=== PATIENT | female | born 1985 | race Caucasian/White ===

== ENCOUNTER 2023-11-06 06:52 | Emergency (ER) | payer BC, MEDICAID ==
[2023-11-06 07:59] LABS: BASOPHILS ABSOLUTE AUTO 0.1 K/mm3 (0.0-0.2); BASOPHILS PERCENT AUTO 0.7 % (0.0-1.0); EOSINOPHILS ABSOLUTE AUTO 0.2 K/mm3 (0.0-0.4); EOSINOPHILS PERCENT AUTO 1.3 % (0.0-6.0); HEMATOCRIT 42.5 % (37.0-47.0); HEMOGLOBIN 14.5 gm/dl (12.0-16.0); IMMATURE GRAN ABSOLUTE AUTO 0.13 K/mm3 (0.00-0.05); LYMPHOCYTES ABSOLUTE AUTO 1.9 K/mm3 (1.0-4.8); MEAN CORPUSCULAR HEMOGLOBIN 31.8 pg (28.0-32.0); MEAN CORPUSCULAR HGB CONC 34.1 g/dl (32.0-36.0); MEAN CORPUSCULAR VOLUME 93.2 fl (83.0-99.0); MEAN PLATELET VOLUME 8.7 fl (9.4-12.3); MONOCYTES ABSOLUTE AUTO 1.5 K/mm3 (0.0-0.8); MONOCYTES PERCENT AUTO 10.9 % (0.0-8.0); NEUTROPHILS ABSOLUTE AUTO 9.7 K/mm3 (1.8-7.7); NEUTROPHILS PERCENT AUTO 72.1 % (41.0-71.0); PLATELET COUNT,PLT 349 K/mm3 (150-400); RED BLOOD CELL COUNT 4.56 M/mm3 (4.10-5.30); WHITE BLOOD CELL COUNT,WBC 13.47 K/mm3 (3.9-11.3)
[2023-11-06 08:53] LABS: ALBUMIN 3.7 g/dl (3.4-5.0); ANION GAP 14.7 (5-15); BILIRUBIN TOTAL 0.4 mg/dL (0.2-1.0); CREATININE 0.8 mg/dL (0.55-1.02); EST CRCL DRUG DOSING (CG) 80.72 mL/min; POTASSIUM,K 3.7 mEq/L (3.5-5.1); PROTEIN TOTAL,TP 7.3 g/dl (6.4-8.2)
[2023-11-06 09:25] LABS: APPEARANCE,URINE CLEAR (Clear); BILIRUBIN,URINE NEGATIVE (Negative); COLOR,URINE YELLOW (Yellow); GLUCOSE,URINE NEGATIVE (Negative); KETONES,URINE NEGATIVE (Negative); LEUKOCYTE ESTERASE,URINE NEGATIVE (Negative); NITRITE,URINE NEGATIVE (Negative); OCCULT BLOOD,URINE NEGATIVE (Negative); PH,URINE 6.5 (5.0-8.0); PROTEIN,URINE NEGATIVE (Negative); UROBILINOGEN,URINE 0.2 (0.2-1.0)
[2023-11-06 10:11] LABS: BACTERIA,URINE FEW /hpf (FEW); EPITHELIAL CELLS,URINE 0-5 /hpf (0-5); MUCUS,URINE FEW /hpf (FEW); RBC,URINE 0-5 /hpf (0-5); WBC,URINE 0-5 /hpf (0-5)
== END 2023-11-06 11:25 | disposition home or self-care (01) ==
LOC: JD.ED 06:52
DX: O99.891 Other specified diseases and conditions complicating pregnancy (principal); R10.32 Left lower quadrant pain; Z88.0 Allergy status to penicillin; Z79.899 Other long term (current) drug therapy; Z3A.01 Less than 8 weeks gestation of pregnancy
CPT/HCPCS: 36415; 76817; 76817-26; 80053; 81001; 83735; 84702; 85025; 99284

== ENCOUNTER 2024-02-11 08:00 | Emergency (ER) | payer BC ==
[2024-02-11 08:44] LABS: BASOPHILS PERCENT AUTO 0.6 % (0.0-1.0); EOSINOPHILS PERCENT AUTO 0.3 % (0.0-6.0); HEMATOCRIT 32.5 % (37.0-47.0); IMMATURE GRAN ABSOLUTE AUTO 0.08 K/mm3 (0.00-0.05); IMMATURE GRAN PERCENT AUTO 1.1 % (0.0-0.4); LYMPHOCYTES ABSOLUTE AUTO 0.4 K/mm3 (1.0-4.8); MEAN CORPUSCULAR HEMOGLOBIN 30.6 pg (28.0-32.0); MEAN CORPUSCULAR HGB CONC 33.8 g/dl (32.0-36.0); MEAN CORPUSCULAR VOLUME 90.5 fl (83.0-99.0); MEAN PLATELET VOLUME 8.9 fl (9.4-12.3); MONOCYTES ABSOLUTE AUTO 1.1 K/mm3 (0.0-0.8); MONOCYTES PERCENT AUTO 14.9 % (0.0-8.0); NEUTROPHILS ABSOLUTE AUTO 5.6 K/mm3 (1.8-7.7); NEUTROPHILS PERCENT AUTO 78.1 % (41.0-71.0); RED BLOOD CELL COUNT 3.59 M/mm3 (4.10-5.30); WHITE BLOOD CELL COUNT,WBC 7.13 K/mm3 (3.9-11.3)
[2024-02-11 08:45] LABS: PLATELET COUNT,PLT 214 K/mm3 (150-400)
[2024-02-11 09:06] LABS: A/G RATIO 0.9 (1-2); ANION GAP 14.8 (5-15); BILIRUBIN TOTAL 0.2 mg/dL (0.2-1.0); BUN/CREATININE RATIO 6.7 (14-18); CALCIUM 9.4 mg/dL (8.5-10.1); CREATININE 0.6 mg/dL (0.55-1.02); EST CRCL DRUG DOSING (CG) 107.63 mL/min; POTASSIUM,K 3.8 mEq/L (3.5-5.1); PROTEIN TOTAL,TP 6.5 g/dl (6.4-8.2)
[2024-02-11 09:17] LABS: CORONAVIRUS COVID-19 NAA POSITIVE (NEGATIVE); INFLUENZA A NAA NEGATIVE (NEGATIVE); RESPIRATORY SYNCYTIAL VIR NAA NEGATIVE (NEGATIVE)
[2024-02-11 09:17] LABS: APPEARANCE,URINE CLEAR (Clear); BILIRUBIN,URINE NEGATIVE (Negative); COLOR,URINE LIGHT YELLOW (Yellow); GLUCOSE,URINE NEGATIVE (Negative); KETONES,URINE NEGATIVE (Negative); LEUKOCYTE ESTERASE,URINE NEGATIVE (Negative); NITRITE,URINE NEGATIVE (Negative); OCCULT BLOOD,URINE NEGATIVE (Negative); PH,URINE 6.5 (5.0-8.0); PROTEIN,URINE NEGATIVE (Negative); UROBILINOGEN,URINE 0.2 (0.2-1.0)
== END 2024-02-11 11:20 | disposition home or self-care (01) ==
LOC: JD.ED 08:00
DX: O98.512 Other viral diseases complicating pregnancy, second trimester (principal); U07.1 COVID-19; O99.891 Other specified diseases and conditions complicating pregnancy; R10.30 Lower abdominal pain, unspecified; Z88.0 Allergy status to penicillin; Z79.899 Other long term (current) drug therapy; Z3A.19 19 weeks gestation of pregnancy
CPT/HCPCS: 0241U; 36415; 76815; 80053; 81003; 83690; 85025; 99284

== ENCOUNTER 2024-06-28 05:18 | Inpatient (IN) | payer BC, MEDICAID ==
[2024-06-28] MEDS: Sodium Chloride 0.9% 10 ML Syringe FLUSH SCH ×2 (01:01→18:44)
[~2024-06-28 05:18] MED LIST: Lactated Ringers 1,000 ML IV SCH; Sodium Chloride 0.9% 10 ML Syringe FLUSH PRN
[2024-06-28] MEDS ORDERED: Lactated Ringers 1,000 ML IV SCH ×3 (06:00→07:15)
[2024-06-28 06:07] LABS: BASOPHILS ABSOLUTE AUTO 0.1 K/mm3 (0.0-0.2); BASOPHILS PERCENT AUTO 0.6 % (0.0-1.0); EOSINOPHILS ABSOLUTE AUTO 0.2 K/mm3 (0.0-0.4); EOSINOPHILS PERCENT AUTO 1.4 % (0.0-6.0); HEMATOCRIT 36.1 % (37.0-47.0); HEMOGLOBIN 12.1 gm/dl (12.0-16.0); IMMATURE GRAN ABSOLUTE AUTO 0.15 K/mm3 (0.00-0.05); IMMATURE GRAN PERCENT AUTO 1.2 % (0.0-0.4); LYMPHOCYTES ABSOLUTE AUTO 2.5 K/mm3 (1.0-4.8); LYMPHOCYTES PERCENT AUTO 20.4 % (24.0-44.0); MEAN CORPUSCULAR HEMOGLOBIN 29.7 pg (28.0-32.0); MEAN CORPUSCULAR HGB CONC 33.5 g/dl (32.0-36.0); MEAN CORPUSCULAR VOLUME 88.5 fl (83.0-99.0); MEAN PLATELET VOLUME 9.6 fl (9.4-12.3); MONOCYTES ABSOLUTE AUTO 1.3 K/mm3 (0.0-0.8); MONOCYTES PERCENT AUTO 10.2 % (0.0-8.0); NEUTROPHILS ABSOLUTE AUTO 8.2 K/mm3 (1.8-7.7); NEUTROPHILS PERCENT AUTO 66.2 % (41.0-71.0); PLATELET COUNT,PLT 301 K/mm3 (150-400); RED BLOOD CELL COUNT 4.08 M/mm3 (4.10-5.30); WHITE BLOOD CELL COUNT,WBC 12.38 K/mm3 (3.9-11.3)
[2024-06-28] MEDS: Lactated Ringers 1,000 ML IV SCH ×2 (06:19→20:16)
[2024-06-28] MEDS ORDERED: Metoclopramide 10 MG/2 ML SDV IVPUSH ONE (07:00)
[2024-06-28] MEDS ORDERED: Bupivacaine 0.5% 30 ML SDV ONE (07:00)
[2024-06-28] MEDS ORDERED: Citric Acid/Sodium Citrate Solution 30 ML Cup PO ONE (07:00)
[2024-06-28] MEDS ORDERED: Sodium Chloride 0.9% 10 ML Syringe FLUSH PRN (07:08)
[2024-06-28] MEDS ORDERED: fentaNYL 100 MCG/2 ML SDV ONE (07:13)
[2024-06-28] MEDS ORDERED: Ondansetron 4 MG/2 ML SDV ONE (07:13)
[2024-06-28] MEDS ORDERED: Morphine PF 10 MG/10 ML SDV ONE (07:13)
[2024-06-28] MEDS ORDERED: Ketorolac 30 MG/ML SDV ONE (07:13)
[2024-06-28] MEDS ORDERED: Oxytocin 10 Units/1 ML SDV ONE (07:13)
[2024-06-28] MEDS ORDERED: Ropivacaine 0.5% 5 MG/ML 30 ML SDV ONE (07:14)
[2024-06-28] MEDS ORDERED: Sodium Chloride 0.9% 50 ML SDV ONE (07:14)
[2024-06-28] MEDS: Citric Acid/Sodium Citrate Solution 30 ML Cup PO ONE (07:16)
[2024-06-28] MEDS: Metoclopramide 10 MG/2 ML SDV IVPUSH ONE (07:16)
[2024-06-28] MEDS ORDERED: dexmedeTOMIDine HCl 200 MCG/2 ML SDV ONE (07:38)
[2024-06-28] MEDS ORDERED: ceFAZolin 2 GM Vial ONE (07:51)
[2024-06-28] MEDS ORDERED: Oxytocin/0.9 % Sodium Chloride 30 UNIT/500 ML BAG IV SCH ×2 (08:00→10:25)
[2024-06-28] MEDS ORDERED: Naloxone 0.4 MG/ML SDV ONE (08:23)
[2024-06-28] MEDS ORDERED: fentaNYL 100 MCG/2 ML SDV IVPUSH PRN (09:26)
[2024-06-28] MEDS ORDERED: diphenhydrAMINE 50 MG/ML SDV IVPUSH PRN (09:26)
[2024-06-28] MEDS ORDERED: Meperidine 50 MG/ML Vial IVPUSH PRN (09:26)
[2024-06-28] MEDS: Ondansetron 4 MG/2 ML SDV IVPUSH PRN (09:31)
[2024-06-28] MEDS ORDERED: Aluminum Hydroxide/Magnesium Hydroxide/Simethicone Susp 30 ML Cup PO PRN (10:25)
[2024-06-28] MEDS ORDERED: ePHEDrine 50 MG/ML SDV IVPUSH PRN (10:25)
[2024-06-28] MEDS ORDERED: Pantoprazole 40 MG Tab.CR PO PRN (10:25)
[2024-06-28] MEDS ORDERED: Naloxone 0.4 MG/ML SDV IVPUSH PRN (10:25)
[2024-06-28] MEDS ORDERED: Ondansetron 4 MG Tab.DIS PO PRN (10:25)
[2024-06-28] MEDS: Oxytocin/0.9 % Sodium Chloride 30 UNIT/500 ML BAG IV SCH (10:45)
[2024-06-28] MEDS: Dextrose 5%-Lactated Ringers 1,000 ML IV SCH (12:27)
[2024-06-28] MEDS: Simethicone 80 MG Tab.Chew PO SCH (12:48)
[2024-06-28] MEDS: Ketorolac 30 MG/ML SDV IVPUSH SCH (15:36)
[2024-06-28 16:13] LABS: HEMATOCRIT 32.1 % (37.0-47.0); HEMOGLOBIN 10.4 gm/dl (12.0-16.0); MEAN CORPUSCULAR HEMOGLOBIN 29.7 pg (28.0-32.0); MEAN CORPUSCULAR HGB CONC 32.4 g/dl (32.0-36.0); MEAN CORPUSCULAR VOLUME 91.7 fl (83.0-99.0); MEAN PLATELET VOLUME 9.1 fl (9.4-12.3); PLATELET COUNT,PLT 228 K/mm3 (150-400); WHITE BLOOD CELL COUNT,WBC 13.68 K/mm3 (3.9-11.3)
[2024-06-28 17:57] LABS: INR 0.94
[2024-06-28] MEDS: ceFAZolin 2 GM in Sodium Chloride 0.9% 50 ML IV ONE (18:44)
[2024-06-28] MEDS: Docusate Sodium 100 MG Cap PO SCH (21:39)
[2024-06-28] MEDS: diphenhydrAMINE 50 MG/ML SDV IVPUSH PRN (23:59)
[2024-06-29] MEDS: traZODone 50 MG Tab PO ONE (01:17)
[2024-06-29 05:44] LABS: HEMATOCRIT 30.8 % (37.0-47.0); HEMOGLOBIN 10.2 gm/dl (12.0-16.0); MEAN CORPUSCULAR HEMOGLOBIN 30.1 pg (28.0-32.0); MEAN CORPUSCULAR HGB CONC 33.1 g/dl (32.0-36.0); MEAN CORPUSCULAR VOLUME 90.9 fl (83.0-99.0); MEAN PLATELET VOLUME 9.1 fl (9.4-12.3); PLATELET COUNT,PLT 230 K/mm3 (150-400); RED BLOOD CELL COUNT 3.39 M/mm3 (4.10-5.30); WHITE BLOOD CELL COUNT,WBC 12.65 K/mm3 (3.9-11.3)
[2024-06-29] MEDS: Ibuprofen 600 MG Tab PO SCH (09:30)
[2024-06-29] MEDS: Acetaminophen/oxyCODONE 325-5 MG Tab PO PRN ×2 (09:30→15:15)
[2024-06-29] MEDS: Prenatal Multivitamin with Calcium/Folic Acid/Iron Tab PO SCH (09:30)
[2024-06-29] MEDS: Magnesium Hydroxide 400 MG/5 ML Susp 30 ML Cup PO PRN (15:46)
== END 2024-06-30 11:10 | disposition home or self-care (01) | DRG 787 ==
LOC: JD.OB 05:18 → OBSVTOIN 08:18 → JD.OB 08:18
PROVIDERS: ADMIT Obstetrics & Gynecology; ATTEND Obstetrics & Gynecology
PROC: 10D00Z1 Extraction of Products of Conception, Low, Open Approach (ICD-10-PCS; principal; 2024-06-28 08:00)
DX: O34.211 Maternal care for low transverse scar from previous cesarean delivery (principal); O99.354 Diseases of the nervous system complicating childbirth; O36.63X0 Maternal care for excessive fetal growth, third trimester, not applicable or unspecified; G35 Multiple sclerosis; Z3A.39 39 weeks gestation of pregnancy; Z37.0 Single live birth; Z87.891 Personal history of nicotine dependence; Z86.16 Personal history of COVID-19; Z88.0 Allergy status to penicillin
CPT/HCPCS: 01961; 36415; 59025; 64488; 85025; 85027; 85384; 85610; 86592; 86850; 86900; 86901; 94762; A9270-GY; J0665; J0690; J1200; J1885; J2274; J2310; J2405; J2590; J2765; J2795; J3010; J3490; J7120; J7121; J7999

== ENCOUNTER 2024-07-02 18:55 | Emergency (ER) | payer MEDICAID ==
[2024-07-02] MEDS ORDERED: Sodium Chloride 0.9% 10 ML Syringe FLUSH PRN (19:13)
[2024-07-02] MEDS ORDERED: Labetalol 100 MG Tab PO ONE ×2 (19:24→19:25)
[2024-07-02 19:45] LABS: BASOPHILS ABSOLUTE AUTO 0.1 K/mm3 (0.0-0.2); BASOPHILS PERCENT AUTO 1.1 % (0.0-1.0); EOSINOPHILS ABSOLUTE AUTO 0.3 K/mm3 (0.0-0.4); EOSINOPHILS PERCENT AUTO 3.5 % (0.0-6.0); HEMATOCRIT 33.8 % (37.0-47.0); IMMATURE GRAN ABSOLUTE AUTO 0.09 K/mm3 (0.00-0.05); IMMATURE GRAN PERCENT AUTO 1.2 % (0.0-0.4); LYMPHOCYTES ABSOLUTE AUTO 2.1 K/mm3 (1.0-4.8); LYMPHOCYTES PERCENT AUTO 28.9 % (24.0-44.0); MEAN CORPUSCULAR HEMOGLOBIN 29.3 pg (28.0-32.0); MEAN CORPUSCULAR HGB CONC 32.5 g/dl (32.0-36.0); MEAN CORPUSCULAR VOLUME 90.1 fl (83.0-99.0); MEAN PLATELET VOLUME 8.6 fl (9.4-12.3); MONOCYTES ABSOLUTE AUTO 0.8 K/mm3 (0.0-0.8); MONOCYTES PERCENT AUTO 10.8 % (0.0-8.0); NEUTROPHILS PERCENT AUTO 54.5 % (41.0-71.0); PLATELET COUNT,PLT 343 K/mm3 (150-400); RED BLOOD CELL COUNT 3.75 M/mm3 (4.10-5.30); WHITE BLOOD CELL COUNT,WBC 7.41 K/mm3 (3.9-11.3)
[2024-07-02 19:46] LABS: APPEARANCE,URINE CLEAR (Clear); BILIRUBIN,URINE NEGATIVE (Negative); COLOR,URINE LIGHT YELLOW (Yellow); GLUCOSE,URINE NEGATIVE (Negative); KETONES,URINE NEGATIVE (Negative); LEUKOCYTE ESTERASE,URINE 1+ (Negative); NITRITE,URINE NEGATIVE (Negative); OCCULT BLOOD,URINE 3+ (Negative); PROTEIN,URINE NEGATIVE (Negative); UROBILINOGEN,URINE 0.2 (0.2-1.0)
[2024-07-02] MEDS: Labetalol 100 MG Tab PO ONE (19:56)
[2024-07-02] MEDS: Metoclopramide 10 MG/2 ML SDV IVPUSH ONE (19:56)
[2024-07-02 20:18] LABS: A/G RATIO 0.7 (1-2); ALBUMIN 2.8 g/dl (3.4-5.0); ANION GAP 12.9 (5-15); BILIRUBIN TOTAL 0.3 mg/dL (0.2-1.0); BUN/CREATININE RATIO 12.5 (14-18); CALCIUM 10.4 mg/dL (8.5-10.1); CREATININE 0.8 mg/dL (0.55-1.02); EST CRCL DRUG DOSING (CG) 80.72 mL/min; POTASSIUM,K 3.9 mEq/L (3.5-5.1); PROTEIN TOTAL,TP 6.8 g/dl (6.4-8.2)
[2024-07-02 20:21] LABS: CREATININE,URINE RAND < 13.0 mg/dL (30.0-125.0); PROTEIN,URINE RANDOM < 6.0 mg/dL (0.0-11.8)
[2024-07-02 20:23] LABS: BACTERIA,URINE FEW /hpf (FEW); MUCUS,URINE FEW /hpf (FEW); WBC,URINE 0-5 /hpf (0-5)
== END 2024-07-02 21:19 | disposition home or self-care (01) ==
LOC: JD.ED 18:55
DX: R60.0 Localized edema (principal); E78.00 Pure hypercholesterolemia, unspecified; K21.9 Gastro-esophageal reflux disease without esophagitis; E66.9 Obesity, unspecified; Z68.41 Body mass index [BMI] 40.0-44.9, adult; Z86.16 Personal history of COVID-19; Z79.899 Other long term (current) drug therapy; Z88.0 Allergy status to penicillin
CPT/HCPCS: 36415; 71045; 80053; 81001; 82570; 83540; 83615; 83880; 84156; 85025; 87086; 96374; 99284; A9270; J2765

== ENCOUNTER 2025-04-27 09:07 | Emergency (ER) | payer BC, MEDICAID ==
[2025-04-27] MEDS: Ondansetron 4 MG Tab.DIS PO ONE (10:07)
== END 2025-04-27 11:58 | disposition home or self-care (01) ==
LOC: JD.ED 09:07
DX: K92.0 Hematemesis (principal); K21.9 Gastro-esophageal reflux disease without esophagitis; E78.00 Pure hypercholesterolemia, unspecified; F17.210 Nicotine dependence, cigarettes, uncomplicated; Z88.0 Allergy status to penicillin; Z79.899 Other long term (current) drug therapy; Z86.16 Personal history of COVID-19
CPT/HCPCS: 87428-QW; 99284; A9270-GY

== ENCOUNTER 2025-07-01 12:03 | Emergency (ER) | payer MEDICAID ==
[2025-07-01 12:52] LABS: BASOPHILS ABSOLUTE AUTO 0.1 K/mm3 (0.0-0.2); BASOPHILS PERCENT AUTO 0.7 % (0.0-1.0); EOSINOPHILS ABSOLUTE AUTO 0.1 K/mm3 (0.0-0.4); EOSINOPHILS PERCENT AUTO 1.0 % (0.0-6.0); IMMATURE GRAN ABSOLUTE AUTO 0.04 K/mm3 (0.00-0.05); IMMATURE GRAN PERCENT AUTO 0.3 % (0.0-0.4); LYMPHOCYTES ABSOLUTE AUTO 2.6 K/mm3 (1.0-4.8); LYMPHOCYTES PERCENT AUTO 21.3 % (24.0-44.0); MEAN PLATELET VOLUME 9.1 fl (9.4-12.3); MONOCYTES ABSOLUTE AUTO 1.1 K/mm3 (0.0-0.8); MONOCYTES PERCENT AUTO 9.0 % (0.0-8.0); NEUTROPHILS ABSOLUTE AUTO 8.2 K/mm3 (1.8-7.7); NEUTROPHILS PERCENT AUTO 67.7 % (41.0-71.0); NRBC ABSOLUTE 0.00 (0.00-0.02); NRBC PERCENT 0.0 % (0.0-0.2); PLATELET COUNT,PLT 297 K/mm3 (150-400); RED BLOOD CELL COUNT 4.58 M/mm3 (4.10-5.30); WHITE BLOOD CELL COUNT,WBC 12.08 K/mm3 (3.9-11.3)
[2025-07-01 13:08] LABS: A/G RATIO 1.1 (1-2); ALANINE AMINOTRANSFERASE,ALT 152 U/L (14-59); ASPARTATE AMNIOTRANSFERASE,AST 70 U/L (15-37); BILIRUBIN TOTAL 0.3 mg/dL (0.2-1.0); BLOOD UREA NITROGEN,BUN 9 mg/dL (7-18); CARBON DIOXIDE,CO2 25 mEq/L (21-32); CHLORIDE,CL 99 mEq/L (98-107); CREATININE 1.0 mg/dL (0.55-1.02); EST CRCL DRUG DOSING (CG) 63.93 mL/min; ESTIMATED GFR 73 mL/min (>60); GLUCOSE RANDOM 84 mg/dL (70-99); POTASSIUM,K 3.2 mEq/L (3.5-5.1); PROTEIN TOTAL,TP 7.3 g/dl (6.4-8.2); SODIUM,NA 135 mEq/L (136-145)
[2025-07-01 13:12] LABS: TROPONIN I HIGH SENSITIVITY < 4 pg/mL (<=51)
[2025-07-01] MEDS: Potassium Bicarbonate/Cit Ac 20 MEQ Effervescent Tab PO ONE (13:33)
[2025-07-01 15:09] LABS: TSH 1.944 uIU/mL (0.358-3.74)
== END 2025-07-01 15:04 | disposition home or self-care (01) ==
LOC: JD.ED 12:03
DX: R00.2 Palpitations (principal); E87.6 Hypokalemia; J45.909 Unspecified asthma, uncomplicated; K21.9 Gastro-esophageal reflux disease without esophagitis; E66.9 Obesity, unspecified; Z68.32 Body mass index [BMI] 32.0-32.9, adult; Z86.16 Personal history of COVID-19; Z88.0 Allergy status to penicillin; Z79.899 Other long term (current) drug therapy
CPT/HCPCS: 36415; 71045; 80053; 83735; 84443; 84484; 84703; 85025; 93005; 99285; A9270